=== PATIENT | male | born 1965 | race Caucasian/White ===

== ENCOUNTER 2016-09-09 11:59 | Emergency (ER) | payer SELFPAY ==
--- NOTE | 2016-09-09 12:47 | ED CLINICAL REPORT ---
Clinical Report - Physicians/Mid Levels [facility] [address] [place] [address] 09/09/2016 12:02 Patient: MELCHOR KENNEY Time Seen: 1232; initial patient contact, initial documentation, patient care assumed. Arrived- By private vehicle. HISTORY OF PRESENT ILLNESS Chief Complaint: UPPER EXTREMITY PAIN and SWELLING. This started about 1 months ago and is still present and worsening. Severity is described as being severe. The quality is noted to be "pain". No radiation. Modifying factors- worsened by movement of arm. Not made better by anything. Symptoms located in the area of the right elbow. No chest pain, difficulty breathing, sensory loss or motor loss. He has had redness and swelling. Repetitive hand use at work. (R handed). Patient notes an injury. Mechanism of injury- (fell and hit elbow). Similar symptoms previously: None. Recent medical care: The patient was seen recently in a clinic. ( went to walk in clinic on 08/21, given shot of abx and rx bactrim, admits to not taking the bactrim because it made him nauseated, didn't f/u and never called clinic to tell them med was making him sick, now elbow is more swollen and painful). REVIEW OF SYSTEMS No fever. All systems otherwise negative, except as recorded above. PAST HISTORY Negative. SOCIAL HISTORY Light tobacco smoker. Occasional alcohol use. History of occasional drug use: marijuana. No recent travel. Is a local resident. FAMILY HISTORY Negative. ADDITIONAL NOTES The nursing notes have been reviewed with agreement regarding the chief complaint, HPI, ROS, PMH and patient medications and allergies. PHYSICAL EXAM Vital Signs: 09/09/2016 12:06 BP: 154/92. HR: 84. RR: 18. O2 saturation: 100%. Temp: 99.1 F. Have been reviewed as normal and appear to be correct. Appearance: Alert. Oriented X3. No acute distress. Eyes: Pupils equal, round and reactive to light. Eyes normal inspection. Neck: Normal inspection. Neck supple. Respiratory: No respiratory distress. Skin: Skin intact. Skin warm and dry. Normal skin color. Normal skin turgor. Extremities: Upper extremities abnormal to inspection. Upper extremities do not exhibit normal ROM. Upper extremity tenderness. Upper extremities exhibit edema. Right elbow: mild erythema and swelling, moderate tenderness and small abrasion located in the area of the posterior elbow. Limited ROM secondary to pain (diminished extension, supination and pronation). Neurovascular intact distally. (abrasion noted to elbow with surrounding erythema). No laceration, ecchymosis, puncture wound, foreign body or deformity. No joint effusion. Extremities otherwise negative. Neuro: Oriented X 3. No motor deficit. No sensory deficit. PROGRESS AND PROCEDURES Course of Care: tx options discussed, pt given choice to continue with bactrim and stomach med, or start something new, warm compresses. Patient counseled in person regarding the patient's stable condition and diagnosis. Differential Diagnosis: Other possible considerations: septic joint, infected abrasion, abscess, cellulitis, fb, mrsa, bursitis. Above considerations are based on history and physical exam. Differential diagnosis was discussed with patient. Disposition: Discharged home in good and unchanged condition (12:47). Condition: good and stable. CLINICAL IMPRESSION Single superficial abrasion to the right elbow. Infection present.Treatment of abrasion not delayed. No abrasion with foreign body present. Cellulitis of the right elbow. No foreign body present. INSTRUCTIONS Do not work today. (warm compresses, as discussed). Warnings: GENERAL WARNINGS: Return or contact your physician immediately if your condition worsens or changes unexpectedly, if not improving as expected, or if other problems arise. Specifically return if problem worsens. Prescription Medications: Zofran 4 mg: Take 1 orally every six hours as needed for nausea/vomiting. Dispense ten (10). No refills. Substitution is permissible. [place] 5 mg / 325 mg tablets: take 1 orally every 6 hours as needed for pain. Dispense five (5). No refill. Motrin 800 mg tablets: take 1 tablet orally every 8 hours as needed for pain. Dispense thirty (30). No refills. Substitution is permissible. Bactrim DS 800 mg / 160 mg: take 1 tablet orally every 12 hours for 10 days. No refill. Follow-up: Follow up with your doctor in about three days even if well. Call for an appointment. Summary of care provided to patient. Understanding of the discharge instructions verbalized by patient. (Electronically signed by Vesta Davis A.R.N.P. 09/09/2016 23:19)
--- NOTE | 2016-09-09 12:47 | ED NURSING NOTES ---
Clinical Report - Nurses [facility] [address] [place] [address] 09/09/2016 12:02 Patient: MELCHOR KENNEY TRIAGE Triage time 1206. Acuity: LEVEL 4. Chief Complaint: TENDER AREA. 12:06. --12:15 Lilly Carmona R.N. 12:09 09/09/16. BP: 154/92. HR: 84. RR: 18. O2 saturation: 100%. Temp: 99.1 F. Pain level now 01/09. --12:15 Lilly Carmona R.N. Weight: 76.6 kg stated. Height/Length: 69 inches Per Patient. BMI: 25. --12:13 Lilly Carmona R.N. Medications Was given an antibiotic on 08/21, but stopped taking it due to nausea . --12:12 Lilly Carmona R.N. Tylenol 650 po last dose eyster am . --12:13 Lilly Carmona R.N. Allergies No Known Drug Allergy. --12:13 Lilly Carmona R.N. History Arrived by private vehicle. Historian: patient. Unaccompanied. Primary physician ([facility]). Reported as located on the right elbow. Onset. (about 1 month ago, started getting swollen and painful 2 weeks ago, now not able to get hand up to mouth). It is described as burning and painful. He has had muscle aches. ( local swelling , redness to rt elbow.). PAST MEDICAL HX: Negative. SURGERY HX: Back surgery. Fusion at L1-L2 and L2-L3. SOCIAL HX: Light tobacco smoker (cigarette)- less than 1/2 a pack per day. Occasional alcohol use. History of drug use: marijuana. --12:15 Lilly Carmona R.N. Interventions ID band on patient. To treatment room. --12:15 Lilly Carmona R.N. PHYSICAL ASSESSMENT 01:206. Ambulatory to room. Patient gowned. GENERAL / NEURO / PSYCH: Alert. The patient does not appear to be in acute distress. Oriented X 4. RESPIRATORY: Respirations not labored. CVS: Capillary refill less than 2 seconds. SKIN: Skin tenderness present. Swelling present. Increased warmth present. --12:15 Lilly Carmona R.N. NURSING PROGRESS NOTES 12:06. Patient gowned. Reassurance given. Patient identifiers checked. Call light placed in reach. Side rails up. Bed placed in lowest position. Patient ready for evaluation- chart flagged. --12:15 Lilly Carmona R.N. DISPOSITION / DISCHARGE Condition at departure: improved. No learning barriers present. Discharge instructions provided and reviewed with the patient. Reviewed warnings. Reviewed medication(s). Treatments reviewed. Reviewed referrals. Work note given. Patient verbalized understanding. Written instructions provided in Chinese. The patient was discharged home. He left the Emergency Department ambulatory and via private vehicle. Patient driving. --13:03 Chacha Merino R.N. 12:58 09/09/16. BP: 152/84. HR: 76. RR: 18. O2 saturation: 99%. Temp: 98.7 F. Pain level now 01/09. --13:03 Chacha Merino R.N. Departure time: 13:Sep 09 2016. --13:03 Chacha Merino R.N. Locked/Released at 09/09/2016 13:26 by Chacha Merino R.N.
--- NOTE | 2016-09-09 12:47 | ED NURSING NOTES ---
Clinical Report - Nurses [facility] [address] [place] [address] 09/09/2016 12:02 Patient: MELCHOR KENNEY TRIAGE Triage time 1206. Acuity: LEVEL 4. Chief Complaint: TENDER AREA. 12:06. --12:15 Lilly Carmona R.N. 12:09 09/09/16. BP: 154/92. HR: 84. RR: 18. O2 saturation: 100%. Temp: 99.1 F. Pain level now 01/09. --12:15 Lilly Carmona R.N. Weight: 76.6 kg stated. Height/Length: 69 inches Per Patient. BMI: 25. --12:13 Lilly Carmona R.N. Medications Was given an antibiotic on 08/21, but stopped taking it due to nausea . --12:12 Lilly Carmona R.N. Tylenol 650 po last dose eyster am . --12:13 Lilly Carmona R.N. Allergies No Known Drug Allergy. --12:13 Lilly Carmona R.N. History Arrived by private vehicle. Historian: patient. Unaccompanied. Primary physician ([facility]). Reported as located on the right elbow. Onset. (about 1 month ago, started getting swollen and painful 2 weeks ago, now not able to get hand up to mouth). It is described as burning and painful. He has had muscle aches. ( local swelling , redness to rt elbow.). PAST MEDICAL HX: Negative. SURGERY HX: Back surgery. Fusion at L1-L2 and L2-L3. SOCIAL HX: Light tobacco smoker (cigarette)- less than 1/2 a pack per day. Occasional alcohol use. History of drug use: marijuana. --12:15 Lilly Carmona R.N. Interventions ID band on patient. To treatment room. --12:15 Lilly Carmona R.N. PHYSICAL ASSESSMENT 01:206. Ambulatory to room. Patient gowned. GENERAL / NEURO / PSYCH: Alert. The patient does not appear to be in acute distress. Oriented X 4. RESPIRATORY: Respirations not labored. CVS: Capillary refill less than 2 seconds. SKIN: Skin tenderness present. Swelling present. Increased warmth present. --12:15 Lilly Carmona R.N. NURSING PROGRESS NOTES 12:06. Patient gowned. Reassurance given. Patient identifiers checked. Call light placed in reach. Side rails up. Bed placed in lowest position. Patient ready for evaluation- chart flagged. --12:15 Lilly Carmona R.N. DISPOSITION / DISCHARGE Condition at departure: improved. No learning barriers present. Discharge instructions provided and reviewed with the patient. Reviewed warnings. Reviewed medication(s). Treatments reviewed. Reviewed referrals. Work note given. Patient verbalized understanding. Written instructions provided in Burmese. The patient was discharged home. He left the Emergency Department ambulatory and via private vehicle. Patient driving. --13:03 Chacha Merino R.N. 12:58 09/09/16. BP: 152/84. HR: 76. RR: 18. O2 saturation: 99%. Temp: 98.7 F. Pain level now 01/09. --13:03 Chacha Merino R.N. Departure time: 13:Sep 09 2016. --13:03 Chacha Merino R.N. Locked/Released at 09/09/2016 13:26 by Chacha Merino R.N.
--- NOTE | 2016-09-09 23:19 | ED MAR SUMMARY ---
..... Medication Administration Record [facility] [address] [place], [place] [id number] Patient: MELCHOR KENNEY Visit ID: [id number] 51y, M Weight: 76.6 kg Height/Length: 69 in BMI: 25 ALLERGIES: No Known Drug Allergy
--- NOTE | 2016-09-09 23:19 | ED MAR SUMMARY ---
..... Medication Administration Record [facility] [address] [place], [place] [id number] Patient: MELCHOR KENNEY Visit ID: [id number] 51y, M Weight: 76.6 kg Height/Length: 69 in BMI: 25 ALLERGIES: No Known Drug Allergy
--- NOTE | 2016-09-09 23:19 | ED DISCHARGE INSTRUCTIONS ---
Patient: MELCHOR KENNEY General Instructions [facility] VisitID: [id number] [address] [place] [address] 51y, M Registration Date/Time: 09/09/2016 Single superficial abrasion to the right elbow. Infection present.Treatment of abrasion not delayed. No abrasion with foreign body present. Cellulitis of the right elbow. No foreign body present. INSTRUCTIONS Do not work today. (warm compresses, as discussed). Warnings: GENERAL WARNINGS: Return or contact your physician immediately if your condition worsens or changes unexpectedly, if not improving as expected, or if other problems arise. Specifically return if problem worsens. Prescription Medications: Zofran 4 mg: Take 1 orally every six hours as needed for nausea/vomiting. Dispense ten (10). No refills. Substitution is permissible. [place] 5 mg / 325 mg tablets: take 1 orally every 6 hours as needed for pain. Dispense five (5). No refill. Motrin 800 mg tablets: take 1 tablet orally every 8 hours as needed for pain. Dispense thirty (30). No refills. Substitution is permissible. Bactrim DS 800 mg / 160 mg: take 1 tablet orally every 12 hours for 10 days. No refill. Follow-up: Follow up with your doctor in about three days even if well. Call for an appointment. Summary of care provided to patient. Understanding of the discharge instructions verbalized by patient. ADDITIONAL INFORMATION Cellulitis You have an infection of the skin known as cellulitis. This usually starts with a scrape, cut, insect bite, blister or other opening in the skin which becomes infected. This is a serious condition. It must be watched closely to be sure the infection is not spreading. With antibiotic treatment, the size of the red area will gradually shrink in size until the skin returns to normal. This will take 7-10 days. The red area should never increase in size once the antibiotic medicine has been started. Occasionally, an infection will be resistant to one antibiotic and another one will have to be used. Home Care: 1) Limit the use of the affected part, since excess movement can cause the infection to spread. 2) If the infection is on your leg, walk as little as possible during the first few days of the treatment. Keep your leg elevated while sitting. This will reduce swelling. 3) Take all of the antibiotic medicine exactly as directed until it is gone. Be careful not to miss any doses, especially during the first seven days. Follow Up with your doctor or this facility as directed. Check the infected area daily for the warning signs listed below. Get Prompt Medical Attention if any of the following occur: -- Spreading area of redness -- Increasing swelling or pain -- Appearance of pus or drainage -- Fever over 100.4 F (38.0 C) oral, or over 101.4 F (38.6 C) rectal, after two days on antibiotics Staph Infection (MRSA) "Staph" is the short name for the common bacteria called "staphylococcus aureus". Staph bacteria are often present on the skin without causing an infection. If it gets under the skin an infection occurs. This causes redness, tenderness, swelling and sometimes fluid drainage. MRSA stands for "Methicillin-Resistant Staph Aureus". Unlike a common staph infection, MRSA bacteria are resistant to the usual antibiotics and harder to treat. Also, MRSA is more toxic than common staph bacteria. It can spread quickly throughout the body and cause a life-threatening illness. MRSA is spread to others by direct physical contact with the bacteria. MRSA can also be transmitted from items contaminated by a person who has the bacteria, such as bandages, towels, bed sheets, or sports equipment. It is not spread through the air. Once you have a MRSA skin infection, you are at risk of having it recur in the future. If MRSA infection is suspected, the doctor may take a wound culture to confirm the diagnosis. Any abscess will be drained. One or sometimes two antibiotics that work against MRSA will be prescribed. Home Care: 1) Take any antibiotics prescribed exactly as directed until they are gone. 2) Follow the same washing procedures as outlined for Household Members below. 3) Keep draining wounds covered with clean, dry bandages. Change dressings as they become soiled. 4) You and those in contact with you should wash their hands frequently with soap and warm water or use an alcohol-based hand art department head. Do this after each time you change the bandage or touch the wound. 5) Avoid sharing personal items such as towels, washcloths, razors, clothing, or uniforms. Wash soiled sheets, towels or clothes in hot water with laundry detergent. Use an automatic clothes dryer set on high to kill any remaining bacteria. 6) Remove any artificial nails and nail frisian. 7) If you use a gym, wipe down equipment before and after each use. Treatment Of Household Members If you have been diagnosed with possible MRSA infection, those living with you are at higher risk of carrying the bacteria on their skin or in their nose, even if there is no sign of infection. Bacteria must be removed from the skin of all household members (including you) at the same time, so that it is not passed back and forth. Advise them to remove the bacteria as follows: Wash your whole body (scalp to toes) daily for five days with Hibiclens (chlorhexidine). Scrub fingernails with a brush for one minute twice a day. If any skin infections are present (boils, abscess, infected cut) these must be treated by a doctor. Washing alone will not treat a MRSA infection. Clean counter tops and children's toys; do not share personal items such as toothbrush and razors. It is okay to share glasses, plates, utensils. If antibiotic ointment was prescribed use it as directed. Follow Up with your doctor or as advised by our staff. If a wound culture was taken, call as directed in two days to obtain the results. If the culture result is positive for MRSA, tell medical personnel in the future that you were treated for this type of infection. Get Prompt Medical Attention if any of the following occur: -- Increasing redness, swelling or pain -- Red streaks in the skin around the wound -- Weakness or dizziness -- New appearance of pus or drainage from the wound -- New fever over 100.4 F (38.0 C) Abrasions Abrasions are skin scrapes. Their treatment depends on how large and deep the abrasion is. Home Care: If you were given a bandage, change it once a day. If your bandage sticks to the wound, soak it in warm water until it loosens. Wash the area with soap and water to remove all the cream/ointment. You may do this in a sink, under a tub faucet or shower. Rinse off the soap and pat dry with a clean towel. Reapply cream/ointment according to your doctor's instructions. This will prevent infection and help prevent the bandage from sticking. Cover the wound with a fresh non-stick bandage (Telfa). Repeat steps 1 to 4 daily, or as directed by your doctor. If the bandage becomes wet or dirty, change it as soon as possible. You may use acetaminophen (Tylenol) or ibuprofen (Motrin, Advil) to control pain, unless another pain medicine was prescribed. [ NOTE : If you have chronic liver or kidney disease or ever had a stomach ulcer or GI bleeding, talk with your doctor before using these medicines.] Do not use ibuprofen in children under six months of age. Follow Up with your physician or this facility as directed by our staff. Most skin wounds heal within ten days. However, an infection may occur despite proper treatment. Therefore, look for the early signs of infection listed below. Get Prompt Medical Attention if any of the following occur: Increasing pain in the wound Increasing redness or swelling Pus coming from the wound Fever of 100.4F (38C) or higher, or as directed by your healthcare provider Ondansetron Oral disintegrating tablet What is this medicine? ONDANSETRON (on SARA se errol) is used to treat nausea and vomiting caused by chemotherapy. It is also used to prevent or treat nausea and vomiting after surgery. How should I use this medicine? These tablets are made to dissolve in the mouth. Do not try to push the tablet through the foil backing. With dry hands, peel away the foil backing and gently remove the tablet. Place the tablet in the mouth and allow it to dissolve, then swallow. While you may take these tablets with water, it is not necessary to do so. Talk to your overlock elastic attacher regarding the use of this medicine in children. Special care may be needed. What side effects may I notice from receiving this medicine? Side effects that you should report to your doctor or health career resource technician as soon as possible: allergic reactions like skin rash, itching or hives, swelling of the face, lips, or tongue breathing problems dizziness fast or irregular heartbeat feeling faint or lightheaded, falls fever and chills swelling of the hands and feet tightness in the chest Side effects that usually do not require medical attention (report to your doctor or health career resource technician if they continue or are bothersome): constipation or diarrhea headache What may interact with this medicine? Do not take this medicine with any of the following medications: -apomorphine -cisapride -dofetilide -dronedarone -pimozide -thioridazine -ziprasidone This medicine may also interact with the following medications: -carbamazepine -phenytoin -rifampicin -tramadol -other medicines that prolong the QT interval (cause an abnormal heart rhythm) What if I miss a dose? If you miss a dose, take it as soon as you can. If it is almost time for your next dose, take only that dose. Do not take double or extra doses. Where should I keep my medicine? Keep out of the reach of children. Store between 2 and 30 degrees C (36 and 86 degrees F). Throw away any unused medicine after the expiration date. What should I tell my health care provider before I take this medicine? They need to know if you have any of these conditions: heart disease history of irregular heartbeat liver disease low levels of magnesium or potassium in the blood an unusual or allergic reaction to ondansetron, granisetron, other medicines, foods, dyes, or preservatives or trying to get breast-feeding What should I watch for while using this medicine? Check with your doctor or health career resource technician as soon as you can if you have any sign of an allergic reaction. Hydrocodone Bitartrate, Acetaminophen Oral tablet What is this medicine? ACETAMINOPHEN; HYDROCODONE (a set a COLLEEN sommer fen; sofía droe KOE done) is a pain reliever. It is used to treat mild to moderate pain. How should I use this medicine? Take this medicine by mouth. Swallow it with a full glass of water. Follow the directions on the prescription label. If the medicine upsets your stomach, take the medicine with food or milk. Do not take more than you are told to take. Talk to your overlock elastic attacher regarding the use of this medicine in children. This medicine is not approved for use in children. What side effects may I notice from receiving this medicine? Side effects that you should report to your doctor or health career resource technician as soon as possible: allergic reactions like skin rash, itching or hives, swelling of the face, lips, or tongue breathing problems confusion feeling faint or lightheaded, falls stomach pain yellowing of the eyes or skin Side effects that usually do not require medical attention (report to your doctor or health career resource technician if they continue or are bothersome): nausea, vomiting stomach upset What may interact with this medicine? alcohol antihistamines isoniazid medicines for depression, anxiety, or psychotic disturbances medicines for sleep muscle relaxants naltrexone narcotic medicines (opiates) for pain phenobarbital ritonavir tramadol What if I miss a dose? If you miss a dose, take it as soon as you can. If it is almost time for your next dose, take only that dose. Do not take double or extra doses. Where should I keep my medicine? Keep out of the reach of children. This medicine can be abused. Keep your medicine in a safe place to protect it from theft. Do not share this medicine with anyone. Selling or giving away this medicine is dangerous and against the law. Store at room temperature between 15 and 30 degrees C (59 and 86 degrees F). Protect from light. Keep container tightly closed. Throw away any unused medicine after the expiration date. Discard unused medicine and used packaging carefully. Pets and children can be harmed if they find used or lost packages. What should I tell my health care provider before I take this medicine? They need to know if you have any of these conditions: brain tumor Crohn's disease, inflammatory bowel disease, or ulcerative colitis drink more than 3 alcohol-containing drinks per day drug abuse or addiction head injury heart or circulation problems kidney disease or problems going to the bathroom liver disease lung disease, asthma, or breathing problems an unusual or allergic reaction to acetaminophen, hydrocodone, other opioid analgesics, other medicines, foods, dyes, or preservatives or trying to get breast-feeding What should I watch for while using this medicine? Tell your doctor or health career resource technician if your pain does not go away, if it gets worse, or if you have new or a different type of pain. You may develop tolerance to the medicine. Tolerance means that you will need a higher dose of the medicine for pain relief. Tolerance is normal and is expected if you take the medicine for a long time. Do not suddenly stop taking your medicine because you may develop a severe reaction. Your body becomes used to the medicine. This does NOT mean you are addicted. Addiction is a behavior related to getting and using a drug for a non-medical reason. If you have pain, you have a medical reason to take pain medicine. Your doctor will tell you how much medicine to take. If your doctor wants you to stop the medicine, the dose will be slowly lowered over time to avoid any side effects. You may get drowsy or dizzy when you first start taking the medicine or change doses. Do not drive, use machinery, or do anything that may be dangerous until you know how the medicine affects you. Stand or sit up slowly. There are different types of narcotic medicines (opiates) for pain. If you take more than one type at the same time, you may have more side effects. Give your health care provider a list of all medicines you use. Your doctor will tell you how much medicine to take. Do not take more medicine than directed. Call emergency for help if you have problems breathing. The medicine will cause constipation. Try to have a bowel movement at least every 2 to 3 days. If you do not have a bowel movement for 3 days, call your doctor or health career resource technician. Too much acetaminophen can be very dangerous. Do not take Tylenol (acetaminophen) or medicines that contain acetaminophen with this medicine. Many non-prescription medicines contain acetaminophen. Always read the labels carefully. Ibuprofen Oral tablet What is this medicine? IBUPROFEN (eye BYOO proe fen) is a non-steroidal anti-inflammatory drug (NSAID). It is used for dental pain, fever, headaches or migraines, osteoarthritis, rheumatoid arthritis, or painful monthly periods. It can also relieve minor aches and pains caused by a cold, flu, or sore throat. How should I use this medicine? Take this medicine by mouth with a glass of water. Follow the directions on the prescription label. Take this medicine with food if your stomach gets upset. Try to not lie down for at least 10 minutes after you take the medicine. Take your medicine at regular intervals. Do not take your medicine more often than directed. A special MedGuide will be given to you by the pharmacist with each prescription and refill. Be sure to read this information carefully each time. Talk to your overlock elastic attacher regarding the use of this medicine in children. Special care may be needed. What side effects may I notice from receiving this medicine? Side effects that you should report to your doctor or health career resource technician as soon as possible: allergic reactions like skin rash, itching or hives, swelling of the face, lips, or tongue black or bloody stools, blood in the urine or in vomit breathing problems changes in vision chest pain general ill feeling or flu-like symptoms nausea or vomiting redness, blistering, peeling or loosening of the skin, including inside the mouth slurred speech or weakness on one side of the body stomach pain unexplained weight gain or swelling unusually weak or tired yellowing of eyes or skin Side effects that usually do not require medical attention (report to your doctor or health career resource technician if they continue or are bothersome): constipation or diarrhea dizziness gas or heartburn stomach upset What may interact with this medicine? Do not take this medicine with any of the following medications: cidofovir ketorolac methotrexate pemetrexed This medicine may also interact with the following medications: alcohol aspirin diuretics lithium other drugs for inflammation like prednisone warfarin What if I miss a dose? If you miss a dose, take it as soon as you can. If it is almost time for your next dose, take only that dose. Do not take double or extra doses. Where should I keep my medicine? Keep out of the reach of children. Store at room temperature between 15 and 30 degrees C (59 and 86 degrees F). Keep container tightly closed. Throw away any unused medicine after the expiration date. What should I tell my health care provider before I take this medicine? They need to know if you have any of these conditions: asthma cigarette smoker drink more than 3 alcohol containing drinks a day heart disease or circulation problems such as heart failure or leg edema (fluid retention) high blood pressure kidney disease liver disease stomach bleeding or ulcers an unusual or allergic reaction to ibuprofen, aspirin, other NSAIDS, other medicines, foods, dyes, or preservatives or trying to get breast-feeding What should I watch for while using this medicine? Tell your doctor or healthcare professional if your symptoms do not start to get better or if they get worse. This medicine does not prevent heart attack or stroke. In fact, this medicine may increase the chance of a heart attack or stroke. The chance may increase with longer use of this medicine and in people who have heart disease. If you take aspirin to prevent heart attack or stroke, talk with your doctor or health career resource technician. Do not take other medicines that contain aspirin, ibuprofen, or naproxen with this medicine. Side effects such as stomach upset, nausea, or ulcers may be more likely to occur. Many medicines available without a prescription should not be taken with this medicine. This medicine can cause ulcers and bleeding in the stomach and intestines at any time during treatment. Ulcers and bleeding can happen without warning symptoms and can cause . To reduce your risk, do not smoke cigarettes or drink alcohol while you are taking this medicine. You may get drowsy or dizzy. Do not drive, use machinery, or do anything that needs mental alertness until you know how this medicine affects you. Do not stand or sit up quickly, especially if you are an older patient. This reduces the risk of dizzy or fainting spells. This medicine can cause you to bleed more easily. Try to avoid damage to your teeth and gums when you brush or floss your teeth. Sulfamethoxazole, Trimethoprim Oral tablet What is this medicine? SULFAMETHOXAZOLE; TRIMETHOPRIM or SMX-TMP (suhl fuh meth OK susanna zohl; trye METH oh prim) is a combination of a sulfonamide antibiotic and a second antibiotic, trimethoprim. It is used to treat or prevent certain kinds of bacterial infections. It will not work for colds, flu, or other viral infections. How should I use this medicine? Take this medicine by mouth with a full glass of water. Follow the directions on the prescription label. Take your medicine at regular intervals. Do not take it more often than directed. Do not skip doses or stop your medicine early. Talk to your overlock elastic attacher regarding the use of this medicine in children. Special care may be needed. This medicine has been used in children as young as 2 months of age. What side effects may I notice from receiving this medicine? Side effects that you should report to your doctor or health career resource technician as soon as possible: allergic reactions like skin rash or hives, swelling of the face, lips, or tongue breathing problems fever or chills, sore throat irregular heartbeat, chest pain joint or muscle pain pain or difficulty passing urine red pinpoint spots on skin redness, blistering, peeling or loosening of the skin, including inside the mouth unusual bleeding or bruising unusually weak or tired yellowing of the eyes or skin Side effects that usually do not require medical attention (report to your doctor or health career resource technician if they continue or are bothersome): diarrhea dizziness headache loss of appetite nausea, vomiting nervousness What may interact with this medicine? Do not take this medicine with any of the following medications: aminobenzoate potassium dofetilide metronidazole This medicine may also interact with the following medications: RAYMOND inhibitors like benazepril, enalapril, lisinopril, and ramipril cyclosporine digoxin diuretics indomethacin medicines for diabetes methenamine methotrexate phenytoin potassium supplements pyrimethamine sulfinpyrazone tricyclic antidepressants warfarin What if I miss a dose? If you miss a dose, take it as soon as you can. If it is almost time for your next dose, take only that dose. Do not take double or extra doses. Where should I keep my medicine? Keep out of the reach of children. Store at room temperature between 20 to 25 degrees C (68 to 77 degrees F). Protect from light. Throw away any unused medicine after the expiration date. What should I tell my health care provider before I take this medicine? They need to know if you have any of these conditions: anemia asthma being treated with anticonvulsants if you frequently drink alcohol containing drinks kidney disease liver disease low level of folic acid or [id number] dehydrogenase poor nutrition or malabsorption porphyria severe allergies thyroid disorder an unusual or allergic reaction to sulfamethoxazole, trimethoprim, sulfa drugs, other medicines, foods, dyes, or preservatives or trying to get breast-feeding What should I watch for while using this medicine? Tell your doctor or health career resource technician if your symptoms do not improve. Drink several glasses of water a day to reduce the risk of kidney problems. Do not treat diarrhea with over the counter products. Contact your doctor if you have diarrhea that lasts more than 2 days or if it is severe and watery. This medicine can make you more sensitive to the sun. Keep out of the sun. If you cannot avoid being in the sun, wear protective clothing and use a sunscreen. Do not use sun lamps or tanning beds/booths. You have been given the following additional information: Cellulitis MRSA Skin Infection, Suspected Or Confirmed Abrasion Ondansetron Oral disintegrating tablet Hydrocodone Bitartrate, Acetaminophen Oral tablet Ibuprofen Oral tablet Sulfamethoxazole, Trimethoprim Oral tablet Do not work today. (Electronically signed by Vesta Davis A.R.N.P. 09/09/2016 23:19)
--- NOTE | 2016-09-09 23:19 | ED MED RECONCILIATION SUMMARY ---
Patient: MELCHOR KENNEY Medication Reconciliation Report [facility] VisitID: [id number] [address] [place] [address] 51y, M Registration Date/Time: 09/09/2016 Weight: 76.6 kg Height/Length: 69 in. BMI: 25.0 ALLERGIES: No Known Drug Allergy The patient's Home Medications are listed below: THE FOLLOWING MEDICATIONS NEED TO BE RECONCILED: Tylenol 650 po last dose am Was given an antibiotic on 08/21, but stopped taking it due to nausea The source(s) of the original Home Medication information: Not obtained. The following Medications were given to the patient in the Emergency Department: None. The following Medications were prescribed to the patient: Zofran 4 mg: Take 1 orally every six hours as needed for nausea/vomiting. Dispense ten (10). No refills. Substitution is permissible. -- Vesta Davis A.R.N.P. [place] 5 mg / 325 mg tablets: take 1 orally every 6 hours as needed for pain. Dispense five (5). No refill. -- Vesta Davis, A.R.N.P. Motrin 800 mg tablets: take 1 tablet orally every 8 hours as needed for pain. Dispense thirty (30). No refills. Substitution is permissible. -- Vesta Davis A.R.N.P. Bactrim DS 800 mg / 160 mg: take 1 tablet orally every 12 hours for 10 days. No refill. -- Vesta Davis A.R.N.P.
--- NOTE | 2016-09-09 23:19 | ED MED RECONCILIATION SUMMARY ---
Patient: MELCHOR KENNEY Medication Reconciliation Report [facility] VisitID: [id number] [address] [place] [address] 51y, M Registration Date/Time: 09/09/2016 Weight: 76.6 kg Height/Length: 69 in. BMI: 25.0 ALLERGIES: No Known Drug Allergy The patient's Home Medications are listed below: THE FOLLOWING MEDICATIONS NEED TO BE RECONCILED: Tylenol 650 po last dose am Was given an antibiotic on 08/21, but stopped taking it due to nausea The source(s) of the original Home Medication information: Not obtained. The following Medications were given to the patient in the Emergency Department: None. The following Medications were prescribed to the patient: Zofran 4 mg: Take 1 orally every six hours as needed for nausea/vomiting. Dispense ten (10). No refills. Substitution is permissible. -- Vesta Davis A.R.N.P. [place] 5 mg / 325 mg tablets: take 1 orally every 6 hours as needed for pain. Dispense five (5). No refill. -- Vesta Davis, A.R.N.P. Motrin 800 mg tablets: take 1 tablet orally every 8 hours as needed for pain. Dispense thirty (30). No refills. Substitution is permissible. -- Vesta Davis A.R.N.P. Bactrim DS 800 mg / 160 mg: take 1 tablet orally every 12 hours for 10 days. No refill. -- Vesta Davis A.R.N.P.
== END 2016-09-09 13:00 | disposition home or self-care (01) ==
LOC: ED SRH 11:59
DX: S50.311A Abrasion of right elbow, initial encounter (principal); L03.113 Cellulitis of right upper limb; W01.198A Fall on same level from slipping, tripping and stumbling with subsequent striking against other object, initial encounter; Y93.89 Activity, other specified; Y92.89 Other specified places as the place of occurrence of the external cause; Y99.9 Unspecified external cause status; F17.210 Nicotine dependence, cigarettes, uncomplicated

== ENCOUNTER 2016-09-22 12:54 | Emergency (ER) | payer SELFPAY ==
--- NOTE | 2016-09-22 14:20 | DIAGNOSTIC IMAGING REPORT ---
PROCEDURE: XR ELBOW 3 OR 4 VIEWS - RIGHT INDICATION: CELLULITIS TECHNIQUE: Four views. COMPARISON: None. FINDINGS: There is cortical disruption of the olecranon proximally with overlying soft tissue swelling. No fracture, dislocation or effusion. IMPRESSION: 1. Olecranon bursitis with underlying cortical disruption suggestive of osteomyelitis
--- NOTE | 2016-09-22 15:58 | ED CLINICAL REPORT ---
Clinical Report - Physicians/Mid Levels [facility] [address] [place] [address] 09/22/2016 12:54 Patient: MELCHOR KENNEY Time Seen: 13:07 Sep 22 2016. Arrived- By private vehicle. Historian- patient. HISTORY OF PRESENT ILLNESS Chief Complaint: TENDER AREA. This started about 1 1/2 months ago and is still present. It was abrupt in onset. It is described as painful. It has been located on the right elbow. A possible cause has been identified. (Patient developed a right elbow infection about a month and a half ago. [facility]. Initially he was placed on antibiotics N says the infection seemed to get better but after few days the antibiotics upset his stomach so he stopped taking it and then the infection return. He was then given nausea medicine to take with the antibiotics and he tried to continue with the antibiotics. However, the infection persisted. He went back to the clinic where they started to give himIM Rocephin every day. Yesterday they did x-rays and today it was read as osteomyelitis of the olecranon. He was sent here by his regular care provider for further evaluation.). Similar symptoms previously: Several times. Recent medical care: The patient was seen recently in a clinic. Not hospitalized. REVIEW OF SYSTEMS No fever, chills, sore throat, cough or difficulty breathing. No chest pain, abdominal pain, nausea, diarrhea or vomiting. He has had joint pain. All systems otherwise negative, except as recorded above. PAST HISTORY See nurses notes. Right-hand dominant. Works at a [employer]. No history of heart disease, lung disease or diabetes mellitus. Tetanus immunization status is up-to-date. SOCIAL HISTORY Smoker- current status unknown. Alcohol use. History of drug use. PHYSICAL EXAM Appearance: Alert. Oriented X3. No acute distress. Neck: Neck supple. Respiratory: No respiratory distress. Skin: Skin warm and dry. Normal skin color. Normal skin turgor. Tender indurated area. Cellulitis. Rash present on the right elbow. There is warmth, weeping, tenderness and swelling. No lymphangitis or crusting. Extremities: No lower extremity edema. Neuro: Oriented X 3. No motor deficit. No sensory deficit. LABS, X-RAYS, AND EKG Rt Elbow X-ray: No fracture. Soft tissue swelling. (Cortical disruption seen on the lateral view of the posterioraspect of the olecranon. Consistent with osteomyelitis.). Views: AP, lateral and oblique. Technique: good. The X-rays were discussed with the radiologist. Laboratory Tests: CBC w Diff: (JANE: 09/22/2016 13:42) ( [facility] 09/22/2016 14:03) Final results Test Result Flag Units (Reference) WHITE BLOOD COUNT 11.6 H K/uL (4.5-11.5) RED BLOOD COUNT 4.92 M/uL (4.50-5.90) HEMOGLOBIN 15.4 gm/dL (13.5-17.5) HEMATOCRIT 46.0 % (41.0-53.0) MEAN CELL VOLUME 94 fL (80-100) MEAN CORPUSCULAR HGB 31 pg (26-34) MEAN CORPUSCULAR HGB CONC 33 g/dL (31-37) RED CELL DISTRIBUTION WIDTH 13.7 % (11.6-14.8) PLATELET COUNT 402 H K/uL (150-400) NEUTROPHIL % 74.7 % (50-75) LYMPH % 15.8 L % (25-40) MONO % 8.7 % (3-14) EOSINOPHIL % 0 % (0-4) BASOPHIL % 0.8 % (0-2) Lactate, Serum: (JANE: 09/22/2016 13:42) ( [facility] 09/22/2016 14:24) Final results Test Result Flag Units (Reference) LACTIC ACID 1.3 mmol/L (0.4-2.0) CMP: (JANE: 09/22/2016 13:42) ( [facility] 09/22/2016 14:22) Final results Test Result Flag Units (Reference) GLUCOSE 97 mg/dL (70-110) BUN 11 mg/dL (7-18) CREATININE 0.7 mg/dL (0.6-1.3) Estimated GFR >60 mL/min Estimated GFR- >60 mL/min Note: Persistent reduction over 3 months in eGFR<60 mL/min/1.73 m2 defines CKD. Patients with eGFR values>=60 mL/min/1.73 m2 may also have CKD if evidence ofpersistent proteinuria. Additional information may be foundat www.kidney.org. SODIUM 138 mmol/L (136-145) POTASSIUM 4.0 mmol/L (3.5-5.1) CHLORIDE 100 mmol/L (98-107) CARBON DIOXIDE 28 mmol/L (21-32) CALCIUM 9.0 mg/dL (8.5-10.1) TOTAL PROTEIN 8.7 H g/dL (6.4-8.2) ALBUMIN 3.5 g/dL (3.3-5.0) BILIRUBIN, TOTAL 0.7 mg/dL (0.0-1.0) ALKALINE PHOSPHATASE 80 U/L (46-116) AST (SGOT) 43 H U/L (15-37) ALT (SGPT) 36 U/L (12-78) C-REACTIVE PROTEIN 1.7 H mg/dL (0.0-0.9) . PROGRESS AND PROCEDURES Course of Care: 13:53 09/22/16. Patient stable. We don't have records so were going to get labs and repeat the x-ray. He is stable so we'll hold off on antibiotics until we speak to orthopedics. 14:18 09/22/16. I spoke to Radiology. It does appear he has some osteomyelitis. Waiting for lab and then will contact ortho. 14:42 09/22/16. Spoke to ortho. Will treat as outpatient w/ close F/U in 48 hrs. IV rocephin ordered. CLINICAL IMPRESSION Acute osteomyelitis of the right ulna. Right olecranon bursitis (Septic). Cellulitis of the right elbow. INSTRUCTIONS Rest at home for three days until better. Do not work for three days. No dietary restrictions. Warnings: GENERAL WARNINGS: Return or contact your physician immediately if your condition worsens or changes unexpectedly, if not improving as expected, or if other problems arise. Specifically return if vomiting, breathing difficulty or fever greater than 102 degrees F worsens. Prescription Medications: Clindamycin 300 mg: take 1 capsule orally every 6 hours for 7 days. No refill. [place] 5 mg / 325 mg tablets: take 1 orally every 6 hours as needed for pain. Dispense five (5). No refill. Substitution is permissible. OTC Medications: Motrin (available over the counter): take according to label instructions. Follow-up: Return to the emergency department tomorrow even if well. Return to the urgent care center Come in the morning if possible. even if well. Follow-up with: [facility], , [address], , [place], [address] Follow up Sunday in three days even if well. Reason for referral: Call today for appointment. (Electronically signed by Leno Peres, 09/22/2016 16:58)
--- NOTE | 2016-09-22 15:58 | ED CLINICAL REPORT ---
Clinical Report - Physicians/Mid Levels [facility] [address] [place] [address] 09/22/2016 12:54 Patient: MELCHOR KENNEY Time Seen: 13:07 Sep 22 2016. Arrived- By private vehicle. Historian- patient. HISTORY OF PRESENT ILLNESS Chief Complaint: TENDER AREA. This started about 1 1/2 months ago and is still present. It was abrupt in onset. It is described as painful. It has been located on the right elbow. A possible cause has been identified. (Patient developed a right elbow infection about a month and a half ago. [facility]. Initially he was placed on antibiotics N says the infection seemed to get better but after few days the antibiotics upset his stomach so he stopped taking it and then the infection return. He was then given nausea medicine to take with the antibiotics and he tried to continue with the antibiotics. However, the infection persisted. He went back to the clinic where they started to give himIM Rocephin every day. Yesterday they did x-rays and today it was read as osteomyelitis of the olecranon. He was sent here by his regular care provider for further evaluation.). Similar symptoms previously: Several times. Recent medical care: The patient was seen recently in a clinic. Not hospitalized. REVIEW OF SYSTEMS No fever, chills, sore throat, cough or difficulty breathing. No chest pain, abdominal pain, nausea, diarrhea or vomiting. He has had joint pain. All systems otherwise negative, except as recorded above. PAST HISTORY See nurses notes. Right-hand dominant. Works at a [employer]. No history of heart disease, lung disease or diabetes mellitus. Tetanus immunization status is up-to-date. SOCIAL HISTORY Smoker- current status unknown. Alcohol use. History of drug use. PHYSICAL EXAM Appearance: Alert. Oriented X3. No acute distress. Neck: Neck supple. Respiratory: No respiratory distress. Skin: Skin warm and dry. Normal skin color. Normal skin turgor. Tender indurated area. Cellulitis. Rash present on the right elbow. There is warmth, weeping, tenderness and swelling. No lymphangitis or crusting. Extremities: No lower extremity edema. Neuro: Oriented X 3. No motor deficit. No sensory deficit. LABS, X-RAYS, AND EKG Rt Elbow X-ray: No fracture. Soft tissue swelling. (Cortical disruption seen on the lateral view of the posterioraspect of the olecranon. Consistent with osteomyelitis.). Views: AP, lateral and oblique. Technique: good. The X-rays were discussed with the radiologist. Laboratory Tests: CBC w Diff: (JANE: 09/22/2016 13:42) ( [facility] 09/22/2016 14:03) Final results Test Result Flag Units (Reference) WHITE BLOOD COUNT 11.6 H K/uL (4.5-11.5) RED BLOOD COUNT 4.92 M/uL (4.50-5.90) HEMOGLOBIN 15.4 gm/dL (13.5-17.5) HEMATOCRIT 46.0 % (41.0-53.0) MEAN CELL VOLUME 94 fL (80-100) MEAN CORPUSCULAR HGB 31 pg (26-34) MEAN CORPUSCULAR HGB CONC 33 g/dL (31-37) RED CELL DISTRIBUTION WIDTH 13.7 % (11.6-14.8) PLATELET COUNT 402 H K/uL (150-400) NEUTROPHIL % 74.7 % (50-75) LYMPH % 15.8 L % (25-40) MONO % 8.7 % (3-14) EOSINOPHIL % 0 % (0-4) BASOPHIL % 0.8 % (0-2) Lactate, Serum: (JANE: 09/22/2016 13:42) ( [facility] 09/22/2016 14:24) Final results Test Result Flag Units (Reference) LACTIC ACID 1.3 mmol/L (0.4-2.0) CMP: (JANE: 09/22/2016 13:42) ( [facility] 09/22/2016 14:22) Final results Test Result Flag Units (Reference) GLUCOSE 97 mg/dL (70-110) BUN 11 mg/dL (7-18) CREATININE 0.7 mg/dL (0.6-1.3) Estimated GFR >60 mL/min Estimated GFR- >60 mL/min Note: Persistent reduction over 3 months in eGFR<60 mL/min/1.73 m2 defines CKD. Patients with eGFR values>=60 mL/min/1.73 m2 may also have CKD if evidence ofpersistent proteinuria. Additional information may be foundat www.kidney.org. SODIUM 138 mmol/L (136-145) POTASSIUM 4.0 mmol/L (3.5-5.1) CHLORIDE 100 mmol/L (98-107) CARBON DIOXIDE 28 mmol/L (21-32) CALCIUM 9.0 mg/dL (8.5-10.1) TOTAL PROTEIN 8.7 H g/dL (6.4-8.2) ALBUMIN 3.5 g/dL (3.3-5.0) BILIRUBIN, TOTAL 0.7 mg/dL (0.0-1.0) ALKALINE PHOSPHATASE 80 U/L (46-116) AST (SGOT) 43 H U/L (15-37) ALT (SGPT) 36 U/L (12-78) C-REACTIVE PROTEIN 1.7 H mg/dL (0.0-0.9) . PROGRESS AND PROCEDURES Course of Care: 13:53 09/22/16. Patient stable. We don't have records so were going to get labs and repeat the x-ray. He is stable so we'll hold off on antibiotics until we speak to orthopedics. 14:18 09/22/16. I spoke to Radiology. It does appear he has some osteomyelitis. Waiting for lab and then will contact ortho. 14:42 09/22/16. Spoke to ortho. Will treat as outpatient w/ close F/U in 48 hrs. IV rocephin ordered. CLINICAL IMPRESSION Acute osteomyelitis of the right ulna. Right olecranon bursitis (Septic). Cellulitis of the right elbow. INSTRUCTIONS Rest at home for three days until better. Do not work for three days. No dietary restrictions. Warnings: GENERAL WARNINGS: Return or contact your physician immediately if your condition worsens or changes unexpectedly, if not improving as expected, or if other problems arise. Specifically return if vomiting, breathing difficulty or fever greater than 102 degrees F worsens. Prescription Medications: Clindamycin 300 mg: take 1 capsule orally every 6 hours for 7 days. No refill. [place] 5 mg / 325 mg tablets: take 1 orally every 6 hours as needed for pain. Dispense five (5). No refill. Substitution is permissible. OTC Medications: Motrin (available over the counter): take according to label instructions. Follow-up: Return to the emergency department tomorrow even if well. Return to the urgent care center Come in the morning if possible. even if well. Follow-up with: [facility], , [address], , [place], [phone] Follow up Sunday in three days even if well. Reason for referral: Call today for appointment. (Electronically signed by Leno Peres, 09/22/2016 16:58)
--- NOTE | 2016-09-22 15:58 | ED ORDER SUMMARY ---
..... Patient: MELCHOR KENNEY OrderSheet [facility] VisitID: [id number] [place] [address] 51y, M Registration Date/Time: 09/22/2016 ORDER SHEET Weight: 65.7 kg (stated) Allergies: No Known Drug Allergy GENERAL ORDERS: Elbow 3 or 4V Right (Concern for osteomyelitis at outside facility. ) Urgent (13:09/22/2016 JCoates) (Ack 13:28 KHoerner) (14:03 DDean R.N.) CBC w Diff Urgent (13:09/22/2016 JCoates) (Ack 13:28 KHoerner) (14:03 DDean R.N.) CMP Urgent (13:09/22/2016 JCoates) (Ack 13:28 KHoerner) (14:03 DDean R.N.) Lactate, Serum Urgent (13:09/22/2016 JCoates) (Ack 13:28 KHoerner) (14:03 DDean R.N.) CRP Urgent (13:09/22/2016 JCoates) (Ack 13:28 KHoerner) (14:03 DDean R.N.) Culture, Wound Surface (Elbow) (abscess right elbow) Urgent (13:29 09/22/2016 JCoates) (13:31 KHoerner) -- (Please page ortho. Thanks.) (14:31 09/22/2016 JCoates) (Ack 14:33 KHoerner) (14:33 KHoerner) MEDICATION ORDERS: IV FLUIDS: IV NS : initial bolus 500 mL (1000 mL/hr), then 500 mL/hr for X1 (NOW) (13:09/22/2016 JCoates) (Ack 13:26 DDean R.N.) (14:04 DDean R.N.) IV Saline Lock (13:09/22/2016 JCoates) (Ack 13:26 DDean R.N.) (14:03 DDean R.N.) Rocephin IV 2 gm/50mL (NOW) (14:42 09/22/2016 JCoates) (Ack 15:04 DDean R.N.) (15:12 DDean R.N.) ORDER SHEET NOTES: [Electronically signed by Lilly Carmona R.N. (16:46 09/22/2016)] [Electronically signed by Leno Peres (16:58 09/22/2016)] [Electronically locked/signed by Lilly Carmona R.N. (16:46 09/22/2016)]
--- NOTE | 2016-09-22 15:58 | ED NURSING NOTES ---
Clinical Report - Nurses [facility] [address] [place] [address] 09/22/2016 12:54 Patient: MELCHOR KENNEY TRIAGE Triage time 1305. Acuity: LEVEL 3. Chief Complaint: LEFT UPPER EXTREMITY PAIN, SWELLING and REDNESS. 13:05. --13:14 Lilly Carmona R.N. 13:05 09/22/16. BP: 143/89. HR: 92. RR: 18. O2 saturation: 100%. Temp: 98.2 F. Pain level now: 01/09. --13:14 Lilly Carmona R.N. Triage time 1305 sent from [facility] to ED for IV antibiotic tx of elbow infection. --14:18 Lilly Carmona R.N. Weight: 65.7 kg stated. Height/Length: 69 inches Per Patient. BMI: 21.4. --13:07 Lilly Carmona R.N. Medications Bactrim DS Oral 1 tablet, 2x a day. Zofran Oral 4 mg, PRN (out of these). --13:12 Lilly Carmona R.N. vicodin finished . --13:13 Lilly Carmona R.N. Motrin 600mg every 8 hours for pain . --13:13 Lilly Carmona R.N. Allergies No Known Drug Allergy. --13:06 Lilly Carmona R.N. History Arrived by private vehicle. Historian: patient. Unaccompanied. Primary physician ([facility]). This occurred (initial injury about 1 month ago, was being treated at [facility] (getting IM antibiotics) states that he now needs IV antibiotics). He has had swelling and redness. SOCIAL HX: Light tobacco smoker (cigarette)- less than 1/2 a pack per day. Occasional alcohol use. History of drug use: marijuana. --13:14 Lilly Carmona R.N. PROBLEMS: Cellulitis. Abrasion(s). --13:06 Lilly Carmona R.N. ADDITIONAL SURGERIES: Back Surgery. --13:06 Lilly Carmona R.N. Interventions ID band on patient. To treatment room. --13:14 Lilly Carmona R.N. PHYSICAL ASSESSMENT 13:05. Ambulatory to room. GENERAL / NEURO / PSYCH: Oriented X 4. Alert. Appears in pain. EXTREMITIES: Right elbow: tenderness, swelling and erythema. Limited ROM. SKIN: Skin is warm and dry. --13:15 Lilly Carmona R.N. NURSING PROGRESS NOTES 13:05. Reassurance given. Patient identifiers checked. Call light placed in reach. Bed placed in lowest position. Patient ready for evaluation- chart flagged. --13:14 Lilly Carmona R.N. 13:27. Patient ID band checked for patient name and birthdate: patient confirmed. Wound to right elbow swabbed for culture; collected by PA. Specimen labeled in the presence of the patient. --13:33 Lilly Carmona R.N. 13:28. Patient walked to radiology with tech. --13:34 Lilly Carmona R.N. 13:42 09/22/2016 Site #1 started via IV in the left antecubital space with an 20g angiocath, with aseptic technique and good blood return; one attempt. Blood drawn: rainbow set. Labeled in the presence of the patient and sent to the lab. Saline lock flushed with 10 mL saline (lactate obtained and sent in ice). --14:02 Lilly Carmona R.N. 13:35. Patient walked back to ED from radiology with tech. --14:03 Lilly Carmona R.N. 13:50 09/22/2016 Started bag #1 1000 mL IV Fluids IV NS (Saline); bolus of 500 mL over 30 minute(s) then at 500 mL/hr over 1 hour(s) via site #1 via IV pump. IV patency established. IV site checked: no pain, redness, or swelling. IV flushed thoroughly pre- and post-medication administration. --14:04 Lilly Carmona R.N. 14:04 09/22/16. ( resting quietly, given po fluids, watching tv). --14:04 Lilly Carmona R.N. 14:31 09/22/2016 IV Fluids IV NS via IV site #1 Rate Changed: bag #1 decreased to 500 mL/hr via IV pump. IV patency established. IV site checked: no pain, redness, or swelling. IV flushed thoroughly. --14:36 Lilly Carmona R.N. 14:30 09/22/16. BP: 141/97. HR: 71. RR: 18. O2 saturation: 99%. Temp: deferred. Pain level now: 01/09. Additional comments: no c/o, IV infusing. --14:39 Lilly Carmona R.N. 15:07 09/22/2016 Started 2 gm of Rocephin (CefTRIAXone Sodium) IVPB in bag #1 50 mL; at 150 mL/hr over 20 minute(s) via site #1 via IV pump. IV patency established. IV site checked: no pain, redness, or swelling. IV flushed thoroughly pre- and post-medication administration. --15:12 Lilly Carmona R.N. 15:35 09/22/2016 Rocephin IVPB Discontinued: bag #1 infused. Total amount infused: 50 mL. IV patency established. IV site checked: no pain, redness, or swelling. IV flushed thoroughly. --15:45 Lilly Carmona R.N. 15:40 09/22/2016 IV Fluids IV NS Discontinued: bag #1 infused upon discharge. Total amount infused: 1000 mL. IV patency established. IV site checked: no pain, redness, or swelling. IV flushed thoroughly. (converted to saline lock). --15:47 Lilly Carmona R.N. 15:40 09/22/2016 IV Saline Lock Drip IV Discontinued: bag #1. Total amount infused: 0 mL. IV patency established. IV site checked: no pain, redness, or swelling. IV flushed thoroughly. --15:47 Lilly Carmona R.N. 15:50 09/22/2016 Site #1 removed upon discharge. Bandaid applied. --15:52 Lilly Carmona R.N. 15:07 antibiotics hanging. pt in no distress. --16:45 Lilly Carmona R.N. DISPOSITION / DISCHARGE 15:45 09/22/16. Condition at departure: unchanged and stable. No learning barriers present. Discharge instructions provided and reviewed with the patient. Reviewed medication(s) (clindamycin, vicodin, motrin). Patient verbalized understanding. Written instructions provided in Slovenian. The patient was discharged home and unaccompanied at time of discharge. He left the Emergency Department ambulatory and via private vehicle. Patient driving. --15:45 Lilly Carmona R.N. 15:40 09/22/16. BP: 147/94. HR: 72. RR: 18. O2 saturation: 99%. Temp: deferred. Pain level now: 01/09. --15:45 Lilly Carmona R.N. Departure time: 1550. --16:43 Lilly Carmona R.N. Locked/Released at 09/22/2016 16:46 by Lilly Carmona R.N.
--- NOTE | 2016-09-22 15:58 | ED ORDER SUMMARY ---
..... Patient: MELCHOR KENNEY OrderSheet [facility] VisitID: [id number] [place] [address] 51y, M Registration Date/Time: 09/22/2016 ORDER SHEET Weight: 65.7 kg (stated) Allergies: No Known Drug Allergy GENERAL ORDERS: Elbow 3 or 4V Right (Concern for osteomyelitis at outside facility. ) Urgent (13:09/22/2016 JCoates) (Ack 13:28 KHoerner) (14:03 DDean R.N.) CBC w Diff Urgent (13:09/22/2016 JCoates) (Ack 13:28 KHoerner) (14:03 DDean R.N.) CMP Urgent (13:09/22/2016 JCoates) (Ack 13:28 KHoerner) (14:03 DDean R.N.) Lactate, Serum Urgent (13:09/22/2016 JCoates) (Ack 13:28 KHoerner) (14:03 DDean R.N.) CRP Urgent (13:09/22/2016 JCoates) (Ack 13:28 KHoerner) (14:03 DDean R.N.) Culture, Wound Surface (Elbow) (abscess right elbow) Urgent (13:29 09/22/2016 JCoates) (13:31 KHoerner) -- (Please page ortho. Thanks.) (14:31 09/22/2016 JCoates) (Ack 14:33 KHoerner) (14:33 KHoerner) MEDICATION ORDERS: IV FLUIDS: IV NS : initial bolus 500 mL (1000 mL/hr), then 500 mL/hr for X1 (NOW) (13:09/22/2016 JCoates) (Ack 13:26 DDean R.N.) (14:04 DDean R.N.) IV Saline Lock (13:09/22/2016 JCoates) (Ack 13:26 DDean R.N.) (14:03 DDean R.N.) Rocephin IV 2 gm/50mL (NOW) (14:42 09/22/2016 JCoates) (Ack 15:04 DDean R.N.) (15:12 DDean R.N.) ORDER SHEET NOTES: [Electronically signed by Lilly Carmona R.N. (16:46 09/22/2016)] [Electronically signed by Leno Peres (16:58 09/22/2016)] [Electronically locked/signed by Lilly Carmona R.N. (16:46 09/22/2016)]
--- NOTE | 2016-09-22 16:58 | ED MED RECONCILIATION SUMMARY ---
Patient: MELCHOR KENNEY Medication Reconciliation Report [facility] VisitID: [id number] [place] [address] 51y, M Registration Date/Time: 09/22/2016 Weight: 65.7 kg Height/Length: 69 in. BMI: 21.4 ALLERGIES: No Known Drug Allergy The patient's Home Medications are listed below: THE FOLLOWING MEDICATIONS NEED TO BE RECONCILED: Bactrim DS Oral 1 tablet, 2x a day Motrin 600mg every 8 hours for pain vicodin finished Zofran Oral 4 mg, PRN, out of these The source(s) of the original Home Medication information: Not obtained. The following Medications were given to the patient in the Emergency Department: IV NS IV Fluids bolus 500 mL over 30 minute(s), then 500 mL/hr, administered: 09/22/2016 1:50:00 PM Rocephin [IVPB] IVPB bolus 0, then 2 gm 150 mL/hr, administered: 09/22/2016 3:07:00 PM The following Medications were prescribed to the patient: Motrin (available over the counter): take according to label instructions. -- Leno Peres Clindamycin 300 mg: take 1 capsule orally every 6 hours for 7 days. No refill. -- Leno Peres [place] 5 mg / 325 mg tablets: take 1 orally every 6 hours as needed for pain. Dispense five (5). No refill. Substitution is permissible. -- Leno Peres
--- NOTE | 2016-09-22 16:58 | ED MED RECONCILIATION SUMMARY ---
Patient: MELCHOR KENNEY Medication Reconciliation Report [facility] VisitID: [id number] [place] [address] 51y, M Registration Date/Time: 09/22/2016 Weight: 65.7 kg Height/Length: 69 in. BMI: 21.4 ALLERGIES: No Known Drug Allergy The patient's Home Medications are listed below: THE FOLLOWING MEDICATIONS NEED TO BE RECONCILED: Bactrim DS Oral 1 tablet, 2x a day Motrin 600mg every 8 hours for pain vicodin finished Zofran Oral 4 mg, PRN, out of these The source(s) of the original Home Medication information: Not obtained. The following Medications were given to the patient in the Emergency Department: IV NS IV Fluids bolus 500 mL over 30 minute(s), then 500 mL/hr, administered: 09/22/2016 1:50:00 PM Rocephin [IVPB] IVPB bolus 0, then 2 gm 150 mL/hr, administered: 09/22/2016 3:07:00 PM The following Medications were prescribed to the patient: Motrin (available over the counter): take according to label instructions. -- Leno Peres Clindamycin 300 mg: take 1 capsule orally every 6 hours for 7 days. No refill. -- Leno Peres [place] 5 mg / 325 mg tablets: take 1 orally every 6 hours as needed for pain. Dispense five (5). No refill. Substitution is permissible. -- Leno Peres
--- NOTE | 2016-09-22 16:58 | ED DISCHARGE INSTRUCTIONS ---
Patient: MELCHOR KENNEY General Instructions [facility] VisitID: [id number] [address] [place] [address] 51y, M Registration Date/Time: 09/22/2016 Acute osteomyelitis of the right ulna. Right olecranon bursitis (Septic). Cellulitis of the right elbow. INSTRUCTIONS Rest at home for three days until better. Do not work for three days. No dietary restrictions. Warnings: GENERAL WARNINGS: Return or contact your physician immediately if your condition worsens or changes unexpectedly, if not improving as expected, or if other problems arise. Specifically return if vomiting, breathing difficulty or fever greater than 102 degrees F worsens. Prescription Medications: Clindamycin 300 mg: take 1 capsule orally every 6 hours for 7 days. No refill. [place] 5 mg / 325 mg tablets: take 1 orally every 6 hours as needed for pain. Dispense five (5). No refill. Substitution is permissible. OTC Medications: Motrin (available over the counter): take according to label instructions. Follow-up: Return to the emergency department tomorrow even if well. Return to the urgent care center Come in the morning if possible. even if well. Follow-up with: [facility], , [address], [place], [id number] Follow up Sunday in three days even if well. Reason for referral: Call today for appointment. ADDITIONAL INFORMATION Cellulitis You have an infection of the skin known as cellulitis. This usually starts with a scrape, cut, insect bite, blister or other opening in the skin which becomes infected. This is a serious condition. It must be watched closely to be sure the infection is not spreading. With antibiotic treatment, the size of the red area will gradually shrink in size until the skin returns to normal. This will take 7-10 days. The red area should never increase in size once the antibiotic medicine has been started. Occasionally, an infection will be resistant to one antibiotic and another one will have to be used. Home Care: 1) Limit the use of the affected part, since excess movement can cause the infection to spread. 2) If the infection is on your leg, walk as little as possible during the first few days of the treatment. Keep your leg elevated while sitting. This will reduce swelling. 3) Take all of the antibiotic medicine exactly as directed until it is gone. Be careful not to miss any doses, especially during the first seven days. Follow Up with your doctor or this facility as directed. Check the infected area daily for the warning signs listed below. Get Prompt Medical Attention if any of the following occur: -- Spreading area of redness -- Increasing swelling or pain -- Appearance of pus or drainage -- Fever over 100.4 F (38.0 C) oral, or over 101.4 F (38.6 C) rectal, after two days on antibiotics Clindamycin Hydrochloride Oral capsule What is this medicine? CLINDAMYCIN (HUANIN enid vu) is a lincosamide antibiotic. It is used to treat certain kinds of bacterial infections. It will not work for colds, flu, or other viral infections. How should I use this medicine? Take this medicine by mouth with a full glass of water. Follow the directions on the prescription label. You can take this medicine with food or on an empty stomach. If the medicine upsets your stomach, take it with food. Take your medicine at regular intervals. Do not take your medicine more often than directed. Take all of your medicine as directed even if you think your are better. Do not skip doses or stop your medicine early. Talk to your cryptologic linguist regarding the use of this medicine in children. Special care may be needed. What side effects may I notice from receiving this medicine? Side effects that you should report to your doctor or health child care nurse as soon as possible: allergic reactions like skin rash, itching or hives, swelling of the face, lips, or tongue dark urine pain on swallowing redness, blistering, peeling or loosening of the skin, including inside the mouth unusual bleeding or bruising unusually weak or tired yellowing of eyes or skin Side effects that usually do not require medical attention (report to your doctor or health child care nurse if they continue or are bothersome): diarrhea itching in the rectal or genital area joint pain nausea, vomiting stomach pain What may interact with this medicine? chloramphenicol erythromycin kaolin products What if I miss a dose? If you miss a dose, take it as soon as you can. If it is almost time for your next dose, take only that dose. Do not take double or extra doses. Where should I keep my medicine? Keep out of the reach of children. Store at room temperature between 20 and 25 degrees C (68 and 77 degrees F). Throw away any unused medicine after the expiration date. What should I tell my health care provider before I take this medicine? They need to know if you have any of these conditions: kidney disease liver disease stomach problems like colitis an unusual or allergic reaction to clindamycin, lincomycin, or other medicines, foods, dyes like tartrazine or preservatives or trying to get breast-feeding What should I watch for while using this medicine? Tell your doctor or healthcare professional if your symptoms do not start to get better or if they get worse. Do not treat diarrhea with over the counter products. Contact your doctor if you have diarrhea that lasts more than 2 days or if it is severe and watery. You have been given the following additional information: Cellulitis Clindamycin Hydrochloride Oral capsule Rest at home for three days until better. Do not work for three days. (Electronically signed by Leno Peres, 09/22/2016 16:58)
--- NOTE | 2016-09-22 16:58 | ED DISCHARGE INSTRUCTIONS ---
Patient: MELCHOR KENNEY General Instructions [facility] VisitID: [id number] [address] [place] [address] 51y, M Registration Date/Time: 09/22/2016 Acute osteomyelitis of the right ulna. Right olecranon bursitis (Septic). Cellulitis of the right elbow. INSTRUCTIONS Rest at home for three days until better. Do not work for three days. No dietary restrictions. Warnings: GENERAL WARNINGS: Return or contact your physician immediately if your condition worsens or changes unexpectedly, if not improving as expected, or if other problems arise. Specifically return if vomiting, breathing difficulty or fever greater than 102 degrees F worsens. Prescription Medications: Clindamycin 300 mg: take 1 capsule orally every 6 hours for 7 days. No refill. [place] 5 mg / 325 mg tablets: take 1 orally every 6 hours as needed for pain. Dispense five (5). No refill. Substitution is permissible. OTC Medications: Motrin (available over the counter): take according to label instructions. Follow-up: Return to the emergency department tomorrow even if well. Return to the urgent care center Come in the morning if possible. even if well. Follow-up with: [facility], , [address], [place], [phone] Follow up Sunday in three days even if well. Reason for referral: Call today for appointment. ADDITIONAL INFORMATION Cellulitis You have an infection of the skin known as cellulitis. This usually starts with a scrape, cut, insect bite, blister or other opening in the skin which becomes infected. This is a serious condition. It must be watched closely to be sure the infection is not spreading. With antibiotic treatment, the size of the red area will gradually shrink in size until the skin returns to normal. This will take 7-10 days. The red area should never increase in size once the antibiotic medicine has been started. Occasionally, an infection will be resistant to one antibiotic and another one will have to be used. Home Care: 1) Limit the use of the affected part, since excess movement can cause the infection to spread. 2) If the infection is on your leg, walk as little as possible during the first few days of the treatment. Keep your leg elevated while sitting. This will reduce swelling. 3) Take all of the antibiotic medicine exactly as directed until it is gone. Be careful not to miss any doses, especially during the first seven days. Follow Up with your doctor or this facility as directed. Check the infected area daily for the warning signs listed below. Get Prompt Medical Attention if any of the following occur: -- Spreading area of redness -- Increasing swelling or pain -- Appearance of pus or drainage -- Fever over 100.4 F (38.0 C) oral, or over 101.4 F (38.6 C) rectal, after two days on antibiotics Clindamycin Hydrochloride Oral capsule What is this medicine? CLINDAMYCIN (HUANIN enid vu) is a lincosamide antibiotic. It is used to treat certain kinds of bacterial infections. It will not work for colds, flu, or other viral infections. How should I use this medicine? Take this medicine by mouth with a full glass of water. Follow the directions on the prescription label. You can take this medicine with food or on an empty stomach. If the medicine upsets your stomach, take it with food. Take your medicine at regular intervals. Do not take your medicine more often than directed. Take all of your medicine as directed even if you think your are better. Do not skip doses or stop your medicine early. Talk to your floor director regarding the use of this medicine in children. Special care may be needed. What side effects may I notice from receiving this medicine? Side effects that you should report to your doctor or health respiratory care practitioner as soon as possible: allergic reactions like skin rash, itching or hives, swelling of the face, lips, or tongue dark urine pain on swallowing redness, blistering, peeling or loosening of the skin, including inside the mouth unusual bleeding or bruising unusually weak or tired yellowing of eyes or skin Side effects that usually do not require medical attention (report to your doctor or health respiratory care practitioner if they continue or are bothersome): diarrhea itching in the rectal or genital area joint pain nausea, vomiting stomach pain What may interact with this medicine? chloramphenicol erythromycin kaolin products What if I miss a dose? If you miss a dose, take it as soon as you can. If it is almost time for your next dose, take only that dose. Do not take double or extra doses. Where should I keep my medicine? Keep out of the reach of children. Store at room temperature between 20 and 25 degrees C (68 and 77 degrees F). Throw away any unused medicine after the expiration date. What should I tell my health care provider before I take this medicine? They need to know if you have any of these conditions: kidney disease liver disease stomach problems like colitis an unusual or allergic reaction to clindamycin, lincomycin, or other medicines, foods, dyes like tartrazine or preservatives or trying to get breast-feeding What should I watch for while using this medicine? Tell your doctor or healthcare professional if your symptoms do not start to get better or if they get worse. Do not treat diarrhea with over the counter products. Contact your doctor if you have diarrhea that lasts more than 2 days or if it is severe and watery. You have been given the following additional information: Cellulitis Clindamycin Hydrochloride Oral capsule Rest at home for three days until better. Do not work for three days. (Electronically signed by Leno Peres, 09/22/2016 16:58)
--- NOTE | 2016-09-22 16:58 | ED MAR SUMMARY ---
..... Medication Administration Record [facility] [address] [place] [address] Patient: MELCHOR KENNEY Visit ID: [id number] 51y, M Weight: 65.7 kg Height/Length: 69 in BMI: 21.4 ALLERGIES: No Known Drug Allergy Start 13:50 09/22/2016 Lilly Carmona R.N., Stop 15:40 09/22/2016 Lilly Carmona R.N. Medication Administered: IV NS (SALINE), Dose: IV Fluids over 1 hour(s), Rate: 500 mL/hr, Bolus: 500 mL over 30 minute(s), Dispensed: 1000 mL bag, Site: #1 left AC. Medication Ordered: IV NS : initial bolus 500 mL (1000 mL/hr), then 500 mL/hr for X1 (NOW). Start 15:07 09/22/2016 Lilly Carmnoa R.N., Stop 15:35 09/22/2016 Lilly Carmona R.N. Medication Administered: ROCEPHIN [IVPB] (CEFTRIAXONE SODIUM), Dose: 2 gm IVPB over 20 minute(s), Rate: 150 mL/hr, Dispensed: 50 mL bag, Site: #1 left AC. Medication Ordered: Rocephin IV 2 gm/50mL (NOW).
--- NOTE | 2016-09-22 16:58 | ED MAR SUMMARY ---
..... Medication Administration Record [facility] [address] [place] [address] Patient: MELCHOR KENNEY Visit ID: [id number] 51y, M Weight: 65.7 kg Height/Length: 69 in BMI: 21.4 ALLERGIES: No Known Drug Allergy Start 13:50 09/22/2016 Lilly Carmona R.N., Stop 15:40 09/22/2016 Lilly Carmona R.N. Medication Administered: IV NS (SALINE), Dose: IV Fluids over 1 hour(s), Rate: 500 mL/hr, Bolus: 500 mL over 30 minute(s), Dispensed: 1000 mL bag, Site: #1 left AC. Medication Ordered: IV NS : initial bolus 500 mL (1000 mL/hr), then 500 mL/hr for X1 (NOW). Start 15:07 09/22/2016 Lilly Carmona R.N., Stop 15:35 09/22/2016 Lilly Carmona R.N. Medication Administered: ROCEPHIN [IVPB] (CEFTRIAXONE SODIUM), Dose: 2 gm IVPB over 20 minute(s), Rate: 150 mL/hr, Dispensed: 50 mL bag, Site: #1 left AC. Medication Ordered: Rocephin IV 2 gm/50mL (NOW).
== END 2016-09-22 15:50 | disposition home or self-care (01) ==
LOC: ED SRH 12:54
DX: M86.131 Other acute osteomyelitis, right radius and ulna (principal); M71.121 Other infective bursitis, right elbow; L03.113 Cellulitis of right upper limb; Z79.899 Other long term (current) drug therapy